=== PATIENT | female | born 1990 | race American Indian/Alaskan Native ===

== ENCOUNTER 2018-09-09 01:08 | Emergency (ER) | payer BC, MEDICAID ==
[2018-09-09 01:13] VITALS: BMI 41.8
[2018-09-09 01:30] VITALS: RESP 22; TEMP 98.6; O2SAT 99
[2018-09-09] MEDS ORDERED: Sodium Chloride 0.9% 1,000 ML IV STA ×2 (01:43→01:53)
--- NOTE | 2018-09-09 02:06 | ED PDOC ---
HPI: Abdomen Time Seen by Provider: 09/09/18 01:43 Chief Complaint (Nursing): Palpitations Chief Complaint (Provider): Abdominal Pain History Per: Patient History/Exam Limitations: no limitations Onset/Duration Of Symptoms: Hrs (x2) Associated Symptoms: Chest Pain (Palpitiations), Other (Weakness) Additional Complaint(s): 27 years old male with history of hypertension, chronic back pain and polycystic ovarian syndrome presents to ER for evaluation of chest pain, sensation of palpitations, generalized weakness and strong cramping pain onset 2 hours ago. Patient reports her menstrual period started yesterday heavily than usual. She states she uses a pad every 2 to 3 hours. Patient describes chest pain as tightness. PMD: Shira Norwood Past Medical History Reviewed: Historical Data, Nursing Documentation, Vital Signs Vital Signs: Last Vital Signs Temp 98.6 F 09/09/18 01:27 Pulse 140 H 09/09/18 01:27 Resp 22 09/09/18 01:27 BP 166/119 H 09/09/18 01:27 Pulse Ox 99 09/09/18 01:27 Primary Care Provider: Shira Norwood - Medical History PMH: Back Problems, HTN Other PMH: Polycystic Ovarian Syndrome - Surgical History Surgical History: (x2) - Family History Family History: States: Unknown Family Hx - Social History Current smoker - smoking cessation education provided: No Alcohol: None Drugs: Denies - Immunization History Hx Tetanus Toxoid Vaccination: No Hx Influenza Vaccination: No Hx Pneumococcal Vaccination: No - Home Medications Home Medications: Ambulatory Orders Medication Instructions Recorded amLODIPine [Norvasc] 5 mg PO HS 05/03/18 Naproxen [Naprosyn] 500 mg PO Q12 #14 tab 09/09/18 - Allergies Allergies/Adverse Reactions: Allergies Allergy/AdvReac Type Severity Reaction Status Date / Time ibuprofen Allergy URTICARIA Verified 09/09/18 01:30 Review of Systems ROS Statement: Except As Marked, All Systems Reviewed And Found Negative Cardiovascular: Positive for: Chest Pain, Palpitations Gastrointestinal: Positive for: Abdominal Pain Neurological: Positive for: Weakness (generalized) Physical Exam - Reviewed Nursing Documentation Reviewed: Yes Vital Signs Reviewed: Yes - Physical Exam Appears: Positive for: Uncomfortable (Obese) Head Exam: Positive for: ATRAUMATIC, NORMOCEPHALIC Skin: Positive for: Normal Color, Warm, Dry Eye Exam: Positive for: Normal appearance, EOMI, PERRL ENT: Positive for: Normal ENT Inspection Neck: Positive for: Normal, Painless ROM, Supple Cardiovascular/Chest: Positive for: Regular Rate, Rhythm, Tachycardia Respiratory: Positive for: Normal Breath Sounds. Negative for: Respiratory Distress Gastrointestinal/Abdominal: Positive for: Tenderness (Suprapubic) Back: Positive for: Normal Inspection. Negative for: L CVA Tenderness, R CVA Tenderness Extremity: Positive for: Normal ROM. Negative for: Pedal Edema, Deformity Neurological/Psych: Positive for: Awake, Alert, Oriented (x3) - Laboratory Results Result Diagrams: 09/09/18 02:27 09/09/18 02:27 - ECG O2 Sat by Pulse Oximetry: 99 (RA) Pulse Ox Interpretation: Normal Medical Decision Making Medical Decision Making: Time: 142 Initial impression: 27 years old female with chest and pelvic pain with sinus tachycardia Initial plan: --Labs --CT Abdomen/ Pelvis --Transvaginal US --IV fluids 0512 CTA Chest FINDINGS: Normal enhancement of the main pulmonary artery and right and left pulmonary arteries. Normal enhancement of the bilateral peripheral pulmonary arteries. There is no demonstrated pulmonary embolism. Normal thoracic aorta and visualized great vessels. There is no demonstrated aortic dissection. Normal heart and pericardium. Normal mediastinum. Normal hilar regions. Normal visualized trachea and bronchi. The lungs are well expanded. Normal pulmonary parenchyma. Normal pleura. Normal chest wall structures. Normal osseous structures. Normal visualized upper abdomen. IMPRESSION: No demonstrated pulmonary embolism or arterial dissection. 0520 CT Abdomen/Pelvis Distended bladder. Uncomplicated chronic diverticulosis. Mild amount of fecal residue in the large bowels. Mild hepatomegaly. The liver is of uniform attenuation without mass or defect. There is no intra or extrahepatic biliary ductal dilatation. The spleen is normal. The gallbladder is within normal limits. The pancreas is of normal contour and attenuation characteristics. There is no evidence of adrenal mass. Both kidneys demonstrate prompt and equal nephrograms. The kidneys are normal in size, shape and configuration. There is no evidence of renal or ureteral mass. No renal or ureteral calculi are identified. There is no hydroureter or hydronephrosis. No evidence for appendicitis. There is no bowel wall thickening. No evidence for small or large bowel obstruction. There is no evidence of abdominal ascites or lymphadenopathy. There is no evidence of intrinsic or extrinsic bladder mass. There is no pelvic ascites or lymphadenopathy. Images of the lung bases show no evidence of pleural or parenchymal mass. There are no pleural effusions. The bony structures are free of lytic or blastic lesions. IMPRESSION: Distended bladder. Retention. Uncomplicated chronic diverticulosis. Mild amount of fecal residue in the large bowels. Mild constipation. Mild hepatomegaly. 0536 Pelvis US Findings: The uterus measures 12.1x5.9x3.7 cm. Endometrium measures 6 mm in its thickness. Anteverted uterus. Normal right ovary. Normal left ovary. Limited transvaginal evaluation secondary to patient's body habitus. Impression: Unremarkable uterus and ovaries without evidence of ovarian torsion. 0550 Patient reports marked improvement in symptoms with resolution of her tachycardia. Patient is stable for discharge. Diagnosis: dysmenorrhea, menorrhagia, abdominal pain and chest pain. Scribe Attestation: Documented by Kathie Contreras, acting as a scribe for Rock Cook MD. Provider Scribe Attestation: All medical record entries made by the Scribe were at my direction and personally dictated by me. I have reviewed the chart and agree that the record accurately reflects my personal performance of the history, physical exam, medical decision making, and the department course for this patient. I have also personally directed, reviewed, and agree with the discharge instructions and disposition. Disposition - Clinical Impression Clinical Impression: Chest pain, Dysmenorrhea, Menorrhagia, Abdominal pain - Patient ED Disposition Is Patient to be Admitted: No - Disposition Disposition: Routine/Home Disposition Time: 05:50 Condition: STABLE Prescriptions: Naproxen [Naprosyn] 500 mg PO Q12 #14 tab Instructions: Chest Pain, Heavy Periods, Painful Periods Forms: [employer] (Lithuanian)
[2018-09-09] MEDS ORDERED: Morphine 4 MG/ML VIAL IVP ONE (02:27)
[2018-09-09 02:31] LABS: SQUAMOUS EPITHIAL 1 /hpf (0-5); URINE BILIRUBIN NEGATIVE (NEGATIVE); URINE BLOOD LARGE (NEGATIVE); URINE CLARITY CLEAR (Clear); URINE COLOR STRAW (YELLOW); URINE GLUCOSE (UA) NEG (NEGATIVE); URINE LEUKOCYTE ESTERASE NEG Leu/uL (Negative); URINE PROTEIN NEGATIVE (NEGATIVE); URINE UROBILINOGEN 0.2-1.0 mg/dL (0.2-1.0)
[2018-09-09] MEDS ORDERED: Morphine 4 MG/ML VIAL ONE (02:33)
[2018-09-09 02:41] LABS: BASO # 0.1 K/uL (0.0-0.2); BASO % 0.5 % (0.0-2.0); EOS # 0.1 K/uL (0.0-0.7); EOS % 0.6 % (0.0-4.0); HEMOGLOBIN 11.3 g/dL (12.0-16.0); LYMPH # 3.1 K/uL (1.0-4.3); LYMPH % 26.5 % (20.0-40.0); MEAN CELL VOLUME 69.5 fl (81.0-99.0); MEAN CORPUSCULAR HGB CONC 31.6 g/dL (33.0-37.0); MEAN PLATELET VOLUME 8.2 fl (7.2-11.7); MONO # 0.5 K/uL (0.0-0.8); MONO % 4.5 % (0.0-10.0); NEUT # 7.9 K/uL (1.8-7.0); NEUT % 67.9 % (50.0-75.0); RBC 5.11 Mil/uL (3.80-5.20); RED CELL DISTRIBUTION WIDTH 15.3 % (11.5-14.5); WHITE BLOOD COUNT 11.6 K/uL (4.8-10.8)
[2018-09-09 02:44] LABS: INR 1.2; PROTHROMBIN TIME 13.5 Seconds (9.8-13.1)
[2018-09-09 02:46] LABS: PARTIAL THROMBOPLASTIN TIME 33.7 Seconds (25.6-37.1)
[2018-09-09 02:47] LABS: ALB/GLOB RATIO 1.2 (1.0-2.1); ALBUMIN 4.7 g/dL (3.5-5.0); ALT/SGPT 31 U/L (9-52); AST/SGOT 30 U/L (14-36); BLOOD UREA NITROGEN 10 mg/dl (7-17); CALCIUM 9.6 mg/dL (8.4-10.2); GFR NON-AFRICAN AMERICAN > 60
[2018-09-09 02:49] LABS: BARBITURATES, UR NEGATIVE (NEGATIVE); BENZODIAZEPINES, UR NEGATIVE (NEGATIVE); OPIATES, UR NEGATIVE (NEGATIVE); PHENCYCLIDINE, UR NEGATIVE (NEGATIVE)
[2018-09-09] MEDS ORDERED: Iodixanol 320 MG/ML 100 ML BOTTLE IV ONE (03:36)
[2018-09-09] MEDS ORDERED: Sodium Chloride 0.9% 50 ML IV ONE (03:36)
[2018-09-09 06:39] VITALS: BP 109/70; PULSE 101
--- NOTE | 2018-09-09 11:56 | CT ---
Date of service: 09/09/2018 PROCEDURE: CT abdomen and pelvis HISTORY: Lower abdominal pain COMPARISON: None. TECHNIQUE: Contiguous axial images of the abdomen and pelvis performed following intravenous injection of approximately 98 cc Visipaque 320 contrast material. Sagittal reformats generated. Radiation dose: Total exam DLP = 812.81 mGy-cm. This CT exam was performed using one or more of the following dose reduction techniques: Automated exposure control, adjustment of the mA and/or kV according to patient size, and/or use of iterative reconstruction technique. FINDINGS: LOWER THORAX: Lung bases clear.. No effusion or basilar pneumothorax heart size normal. No significant pericardial effusion there is a small hiatal hernia. The LIVER: Liver is of borderline/mildly enlarged measuring nearly over 19 cm in CC dimension.. No obvious hepatic mass collection or calcification. GALLBLADDER AND BILE DUCTS: Unremarkable. PANCREAS: Unremarkable. No mass. No ductal dilatation. SPLEEN: Unremarkable. No splenomegaly. ADRENALS: Unremarkable. KIDNEYS AND URETERS: Unremarkable. No stone or hydronephrosis. BLADDER: Urinary bladder markedly distended; rule out urinary retention REPRODUCTIVE: Small approximately 16 mm right adnexal cyst. APPENDIX: Unremarkable. BOWEL: Unremarkable. No obstruction. No gross mural thickening. PERITONEUM: Unremarkable. No fluid collection. No free air. Small fat containing umbilical hernia. LYMPH NODES: Multiple small to borderline mesenteric lymph nodes are present most conspicuous in the right lower quadrant of the abdomen. Rule out underlying mild mesenteric adenitis. VASCULATURE: Unremarkable. No aortic aneurysm. No aortic atherosclerotic calcification or mural plaque present. BONES: No fracture or destructive lesion. OTHER FINDINGS: None. IMPRESSION: Mild hepatomegaly. The bladder is markedly distended; rule out urinary retention. Multiple small to borderline mesenteric lymph nodes are present most conspicuous in the right lower quadrant of the abdomen. Rule out underlying mild mesenteric adenitis. Small approximately 16 mm right adnexal cyst
--- NOTE | 2018-09-09 14:00 | CT ---
Date of service: 09/09/2018 PROCEDURE: CT Chest with contrast (Pulmonary Angiogram) HISTORY: chest pain r/o PE COMPARISON: None available. TECHNIQUE: Axial computed tomography images were obtained of the chest in the pulmonary arterial phase of enhancement. Coronal and sagittal reformatted images were created and reviewed. Intravenous contrast dose: 98 cc Visipaque 320 Radiation dose: Total exam DLP = 342.68 mGy-cm. This CT exam was performed using one or more of the following dose reduction techniques: Automated exposure control, adjustment of the mA and/or kV according to patient size, and/or use of iterative reconstruction technique. FINDINGS: PULMONARY ARTERIES: Study is limited due to suboptimal opacification of pulmonary arteries as well as large body habitus. Visualized portions of the pulmonary trunk, right and left main, lobar and segmental branches of the pulmonary arteries appear relatively well opacified with no definitive central filling defects seen to suggest acute central pulmonary embolus. Note that the the distal branches of the pulmonary arteries poorly delineated due to the aforementioned limitations.. AORTA: No acute findings. No thoracic aortic aneurysm. No aortic atherosclerotic calcification or mural plaque present. LUNGS: Unremarkable. No nodule, mass or pulmonary consolidation. PLEURAL SPACES: Unremarkable. No effusion or pneumothorax. HEART: Unremarkable. No cardiomegaly. No significant pericardial effusion. LYMPH NODES: No lymphadenopathy. BONES, CHEST WALL: Unremarkable. No fracture or destructive lesion OTHER FINDINGS: Small hiatal hernia IMPRESSION: Limited study due to suboptimal opacification of the pulmonary arteries. No definitive evidence of acute central pulmonary embolus.
--- NOTE | 2018-09-09 15:20 | US ---
Date of service: 09/09/2018 HISTORY: pelvic pain; r/o cyst/torsion COMPARISON: None available. TECHNIQUE: Transabdominal-transvaginal sonographic evaluation of the pelvis performed. FINDINGS: UTERUS: Measures 12.9 x 5.9 x 3.7 cm. Anteverted. Normal in size and appearance. No fibroid or other mass lesion seen. ENDOMETRIUM: Measures 6.0 mm in diameter. Unremarkable. CERVIX: No cervical abnormality identified. RIGHT OVARY: Measures 3.7 x 3.9 x 3.2 cm. No solid mass. Normal flow. Possible small cyst right ovary suspect on prior CT scan is not appreciated on this exam LEFT OVARY: Measures 3.5 x 3.0 x 1.9 cm. No solid mass. Normal flow. FREE FLUID: No significant free fluid noted. OTHER FINDINGS: None. IMPRESSION: Possible small cyst right ovary suspect on prior CT scan is not appreciated on this exam
--- NOTE | 2018-09-09 20:06 | CARD ---
APPROVED REPORT Date of service: 09/09/2018 EKG Measurement Heart [id number] <Conclusion> Sinus tachycardia Otherwise normal ECG
== END 2018-09-09 06:42 | disposition home or self-care (01) ==
LOC: H.ER 01:08
DX: R07.89 Other chest pain (principal); N94.6 Dysmenorrhea, unspecified; N92.0 Excessive and frequent menstruation with regular cycle; R10.9 Unspecified abdominal pain; E28.2 Polycystic ovarian syndrome; I10 Essential (primary) hypertension; N85.4 Malposition of uterus
CPT/HCPCS: 71275; 74177; 76830; 76856; 80053; 81003; 81025; 83605; 84443; 84484; 84702; 85025; 85610; 85730; 93005; 96360; 96361; 99283; G0480; J7030; Q9967